=== PATIENT | male | born 1975 | race Caucasian/White ===

== ENCOUNTER 2019-09-22 21:39 | Inpatient (IN) | payer SELFPAY ==
[~2019-09-22] VITALS: Ht 157.5 cm; Wt 73.9 kg
[2019-09-22] MEDS ORDERED: SODIUM CHLORIDE 0.9% 1,000 ML IV ONE (23:09)
[2019-09-22] MEDS ORDERED: ONDANSETRON HCL 4MG/2ML INJ IV STA (23:09)
[2019-09-23] VITALS (7 sets, daily range): BP systolic 123–132; BP diastolic 79–94
[2019-09-23 00:15] LABS: HEMATOCRIT. 52.4 % (42.0-52.0); HEMOGLOBIN. 17.3 g/dL (14.0-18.0); MEAN CORPUSCULAR HEMOGLOBIN 32.6 pg (28.0-32.0); MEAN CORPUSCULAR VOLUME 98.9 fL (80.0-94.0); MEAN PLATELET VOLUME 9.2 fl (7.4-10.4); PLATELET 132 x1000/uL (130-400); RED CELL DISTRIBUTION WIDTH 14.2 % (11.6-14.6)
[2019-09-23 00:21] LABS: INR 1.3
[2019-09-23 00:24] LABS: CHLORIDE 101 mEq/L (98-107)
[2019-09-23 00:30] LABS: ETHANOL BLOOD < 10 mg/dL
[2019-09-23] MEDS ORDERED: ASPIRIN 325MG TABLET PO ONE (01:00)
[2019-09-23] MEDS ORDERED: CEFTRIAXONE 1 G PREMIX 50 ML IV ONE (01:00)
[2019-09-23] MEDS ORDERED: SODIUM CHLORIDE 0.9% 1000ML BAG (SEPSIS BOLUS) IV ONE (01:00)
[2019-09-23 01:19] LABS: CLARITY URINE TURBID (CLEAR); COLOR URINE DARK YELLOW (YELLOW); KETONES URINE NEGATIVE (NEGATIVE); LEUKOCYTE ESTERASE URINE 1+ (NEGATIVE); NITRITE URINE NEGATIVE (NEGATIVE); OCCULT BLOOD URINE 3+ (NEGATIVE); PROTEIN URINE 3+ (NEGATIVE); SPECIFIC GRAVITY URINE 1.019 (1.005-1.030)
[2019-09-23 01:49] LABS: PLATELET ESTIMATE NORMAL
[2019-09-23 01:55] LABS: *BENZODIAZEPINES SCREEN URINE NEGATIVE (NEGATIVE); *COCAINE SCREEN URINE NEGATIVE (NEGATIVE); METHADONE URINE SCREEN NEGATIVE (NEGATIVE); OPIATES URINE SCREEN NEGATIVE (NEGATIVE)
[2019-09-23 01:56] LABS: *AMPHETAMINES SCREEN URINE PRESUMTIVE POSITIVE (NEGATIVE); *BARBITURATES SCREEN URINE NEGATIVE (NEGATIVE); CANNABINOID URINE SCREEN NEGATIVE (NEGATIVE); PHENCYCLIDINE URINE SCREEN NEGATIVE (NEGATIVE)
[2019-09-23] MEDS ORDERED: CALCIUM CHLORIDE 1GM/10ML SYR IV SCH (03:00)
[2019-09-23] MEDS ORDERED: DEXTROSE 50% WATER 50ML SYRINGE IV SCH (03:00)
[2019-09-23] MEDS ORDERED: INSULIN REGULAR (HUMULIN R) 300UNITS/3ML IV SCH (03:00)
[2019-09-23] MEDS ORDERED: SODIUM CHLORIDE 0.9% 1,000 ML IV ONE (03:00)
[2019-09-23] MEDS ORDERED: ONDANSETRON HCL 4MG/2ML INJ IV PRN (04:30)
[2019-09-23] MEDS ORDERED: ACETAMINOPHEN 650MG SUPP PR PRN (04:30)
[2019-09-23] MEDS ORDERED: IPRATROPIUM/ALBUTEROL 0.5-3(2.5)MG/3ML NEB NEB PRN (04:30)
[2019-09-23] MEDS ORDERED: DIPHENHYDRAMINE 50MG/ML VIAL IV PRN (04:30)
[2019-09-23] MEDS: DEXT 5%/0.45% NACL 1000ML 1,000 ML IV SCH ×2 (07:09→16:37)
[2019-09-23] MEDS: FAMOTIDINE 20MG/2ML VIAL IV SCH (08:29)
[2019-09-23 08:40] LABS: CHLORIDE 109 mEq/L (98-107)
[2019-09-23 08:59] LABS: HEMATOCRIT 45.3 % (42.0-52.0); HEMOGLOBIN 15.2 g/dL (14.0-18.0); MEAN CORPUSCULAR VOLUME 98.6 fL (80.0-94.0); PLATELET 113 x1000/uL (130-400); RED CELL DISTRIBUTION WIDTH 14.1 % (11.6-14.6)
[2019-09-23] MEDS ORDERED: DEXTROSE 50% WATER 50ML SYRINGE IV PRN (10:15)
[2019-09-23] MEDS: BLOOD SUGAR DIAGNOSTIC STRIP TEST SCH ×3 (12:34→22:10)
[2019-09-23] MEDS: INSULIN LISPRO 100 UNITS/ML SUBCUT SCH ×3 (12:34→21:00)
[2019-09-23] MEDS ORDERED: SODIUM POLYSTYRENE SULFONATE 15 G/60 ML BOT PO NR (14:00)
[2019-09-23 15:08] LABS: BG BASE EXCESS -9.4 mmol/L (-2.0-2.0); BG CARBOXYHEMOGLOBIN 1.1 % (0.5-1.5); BG DEOXYHEMOGLOBIN 4.1 % (0.0-5.0); BG FRACTION INSPIRED OXYGEN 21; BG HCO3 ACT 17.2 mmol/L (22.0-26.0); BG METHEMOGLOBIN 0.3 % (0.0-1.5); BG OXYGEN SATURATION 95.8 % (92.0-98.5); BG OXYHEMOGLOBIN 94.5 % (94.0-97.0); BG PCO2 39.9 mmHg (35.0-45.0); BG PH 7.252 (7.350-7.450); BG PO2 89.7 mmHg (75.0-100.0); BG SAMPLE SITE RIGHT BRACHIAL; BG TOTAL HEMOGLOBIN 15.2 g/dL (12.0-18.0); BG VENT MODE ROOM AIR
[2019-09-23 18:48] LABS: HEPATITIS B SURFACE ANTIGEN NEGATIVE
[2019-09-23 19:17] LABS: HEPATITIS A AB IGM NEGATIVE (NEGATIVE)
[2019-09-23 19:49] LABS: CREATINE KINASE 69357 IU/L (39-308)
[2019-09-24] VITALS (26 sets, daily range): BP systolic 132–165; BP diastolic 80–101
[2019-09-24] MEDS ORDERED: CEFTRIAXONE 1 G PREMIX 50 ML IV SCH (01:00)
[2019-09-24] MEDS: DEXT 5%/0.45% NACL 1000ML 1,000 ML IV SCH (02:30)
[2019-09-24] MEDS: BLOOD SUGAR DIAGNOSTIC STRIP TEST SCH ×4 (06:53→21:21)
[2019-09-24 07:37] LABS: BASOPHILS % 0.2 % (0.0-2.0); EOSINOPHILS % 0.2 % (0.0-5.0); HEMATOCRIT. 40.3 % (42.0-52.0); HEMOGLOBIN. 13.7 g/dL (14.0-18.0); LYMPHOCYTES % 7.6 % (20.0-50.0); MEAN CORPUSCULAR VOLUME 97.2 fL (80.0-94.0); MEAN PLATELET VOLUME 10.2 fl (7.4-10.4); MONOCYTES % 11.3 % (2.0-8.0); NEUTROPHILS % 80.7 % (40.0-76.0); PLATELET 90 x1000/uL (130-400); RED BLOOD CELL COUNT 4.15 mill/uL (4.7-6.1); RED CELL DISTRIBUTION WIDTH 13.9 % (11.6-14.6)
[2019-09-24] MEDS: INSULIN LISPRO 100 UNITS/ML SUBCUT SCH ×4 (07:45→21:00)
[2019-09-24] MEDS: FAMOTIDINE 20MG/2ML VIAL IV SCH (09:40)
[2019-09-24 11:51] LABS: CREATINE KINASE MB FRACTION 437.9 ng/mL (0.5-3.6)
[2019-09-24] MEDS: SODIUM CHLORIDE 0.9% 1,000 ML IV SCH ×2 (13:45→21:59)
[2019-09-24] MEDS: AMLODIPINE 5MG TABLET PO SCH ×2 (15:00→21:18)
[2019-09-24] MEDS ORDERED: CLONIDINE 0.1MG TABLET PO PRN (15:00)
[2019-09-24] MEDS ORDERED: MORPHINE SULFATE 4 MG/ML CPJ (NOT FOR IM USE) IV PRN (19:45)
[2019-09-24] MEDS: CALCIUM ACETATE 667MG CAPSULE PO SCH (20:02)
[2019-09-25] VITALS (11 sets, daily range): BP systolic 125–153; BP diastolic 62–90
[2019-09-25] MEDS: CEFTRIAXONE 1 G PREMIX 50 ML IV SCH (01:15)
[2019-09-25] MEDS: SODIUM CHLORIDE 0.9% 1,000 ML IV SCH (06:36)
[2019-09-25] MEDS: BLOOD SUGAR DIAGNOSTIC STRIP TEST SCH (06:36)
[2019-09-25] MEDS: INSULIN LISPRO 100 UNITS/ML SUBCUT SCH (08:00)
[2019-09-25 08:03] LABS: BASOPHILS % 0.1 % (0.0-2.0); EOSINOPHILS % 0.2 % (0.0-5.0); HEMATOCRIT. 36.3 % (42.0-52.0); HEMOGLOBIN. 12.5 g/dL (14.0-18.0); MEAN CORPUSCULAR HEMOGLOBIN 33.2 pg (28.0-32.0); MEAN CORPUSCULAR VOLUME 96.1 fL (80.0-94.0); MEAN PLATELET VOLUME 9.9 fl (7.4-10.4); MONOCYTES % 12.6 % (2.0-8.0); NEUTROPHILS % 77.1 % (40.0-76.0); PLATELET 66 x1000/uL (130-400); RED BLOOD CELL COUNT 3.78 mill/uL (4.7-6.1); RED CELL DISTRIBUTION WIDTH 13.5 % (11.6-14.6)
[2019-09-25 08:15] LABS: CHLORIDE 105 mEq/L (98-107)
[2019-09-25 08:26] LABS: PHOSPHORUS 4.8 mg/dL (2.5-4.9)
[2019-09-25 08:32] LABS: CREATINE KINASE MB FRACTION 135.2 ng/mL (0.5-3.6)
[2019-09-25 09:27] LABS: CREATINE KINASE 22980 IU/L (39-308)
[2019-09-25] MEDS: AMLODIPINE 5MG TABLET PO SCH ×2 (10:35→21:45)
[2019-09-25] MEDS: FAMOTIDINE 20MG/2ML VIAL IV SCH (10:35)
[2019-09-25] MEDS: CALCIUM ACETATE 667MG CAPSULE PO SCH (10:35)
[2019-09-25] MEDS: CALCIUM CARBONATE 500MG TABLET CHEW PO SCH (13:41)
[2019-09-26] VITALS (11 sets, daily range): BP systolic 126–150; BP diastolic 66–95
[2019-09-26] MEDS: CEFTRIAXONE 1 G PREMIX 50 ML IV SCH (00:19)
[2019-09-26 07:54] LABS: CHLORIDE 104 mEq/L (98-107)
[2019-09-26 08:01] LABS: PHOSPHORUS 3.8 mg/dL (2.5-4.9)
[2019-09-26 08:15] LABS: BASOPHILS % 0.1 % (0.0-2.0); EOSINOPHILS % 0.7 % (0.0-5.0); HEMATOCRIT. 34.7 % (42.0-52.0); HEMOGLOBIN. 12.1 g/dL (14.0-18.0); MEAN CORPUSCULAR HEMOGLOBIN 33.3 pg (28.0-32.0); MEAN CORPUSCULAR VOLUME 95.5 fL (80.0-94.0); MEAN PLATELET VOLUME 9.5 fl (7.4-10.4); MONOCYTES % 13.4 % (2.0-8.0); NEUTROPHILS % 75.8 % (40.0-76.0); PLATELET 73 x1000/uL (130-400); RED BLOOD CELL COUNT 3.63 mill/uL (4.7-6.1); RED CELL DISTRIBUTION WIDTH 13.4 % (11.6-14.6)
[2019-09-26 08:40] LABS: CREATINE KINASE 12512 IU/L (39-308)
[2019-09-26] MEDS: CALCIUM CARBONATE 500MG TABLET CHEW PO SCH ×3 (08:56→17:30)
[2019-09-26] MEDS: FAMOTIDINE 20MG/2ML VIAL IV SCH (08:57)
[2019-09-26] MEDS: AMLODIPINE 5MG TABLET PO SCH ×2 (14:20→20:28)
[2019-09-26] MEDS ORDERED: POTASSIUM CHLORIDE 20MEQ TABLET SR PO NR (14:38)
[2019-09-27] VITALS (12 sets, daily range): BP systolic 126–159; BP diastolic 52–86
[2019-09-27] MEDS: CEFTRIAXONE 1 G PREMIX 50 ML IV SCH (00:57)
[2019-09-27 06:22] LABS: BASOPHILS % 0.2 % (0.0-2.0); EOSINOPHILS % 1.9 % (0.0-5.0); HEMOGLOBIN. 13.1 g/dL (14.0-18.0); LYMPHOCYTES % 9.4 % (20.0-50.0); MEAN CORPUSCULAR HEMOGLOBIN 33.1 pg (28.0-32.0); MEAN CORPUSCULAR VOLUME 95.5 fL (80.0-94.0); MEAN PLATELET VOLUME 9.5 fl (7.4-10.4); MONOCYTES % 9.3 % (2.0-8.0); NEUTROPHILS % 79.2 % (40.0-76.0); PLATELET 87 x1000/uL (130-400); RED BLOOD CELL COUNT 3.97 mill/uL (4.7-6.1); RED CELL DISTRIBUTION WIDTH 13.3 % (11.6-14.6)
[2019-09-27 06:39] LABS: FOLIC ACID (FOLATE) SERUM 15.3 ng/mL (>5.38)
[2019-09-27] MEDS: FAMOTIDINE 20MG/2ML VIAL IV SCH (08:31)
[2019-09-27] MEDS: AMLODIPINE 5MG TABLET PO SCH ×2 (08:31→22:18)
[2019-09-27] MEDS: CALCIUM CARBONATE 500MG TABLET CHEW PO SCH ×3 (08:31→18:23)
[2019-09-28] VITALS (12 sets, daily range): BP systolic 106–148; BP diastolic 49–84
[2019-09-28] MEDS: CEFTRIAXONE 1 G PREMIX 50 ML IV SCH (00:40)
[2019-09-28 07:15] LABS: BASOPHILS % 0.3 % (0.0-2.0); EOSINOPHILS % 2.5 % (0.0-5.0); HEMATOCRIT. 39.9 % (42.0-52.0); HEMOGLOBIN. 13.6 g/dL (14.0-18.0); LYMPHOCYTES % 8.7 % (20.0-50.0); MEAN CORPUSCULAR HEMOGLOBIN 32.6 pg (28.0-32.0); MEAN CORPUSCULAR VOLUME 95.5 fL (80.0-94.0); MEAN PLATELET VOLUME 9.9 fl (7.4-10.4); MONOCYTES % 8.6 % (2.0-8.0); NEUTROPHILS % 79.9 % (40.0-76.0); PLATELET 99 x1000/uL (130-400); RED BLOOD CELL COUNT 4.18 mill/uL (4.7-6.1); RED CELL DISTRIBUTION WIDTH 13.4 % (11.6-14.6)
[2019-09-28 07:30] LABS: CHLORIDE 105 mEq/L (98-107)
[2019-09-28 07:58] LABS: PHOSPHORUS 4.3 mg/dL (2.5-4.9)
[2019-09-28 08:22] LABS: CREATINE KINASE 4349 IU/L (39-308)
[2019-09-28] MEDS: AMLODIPINE 5MG TABLET PO SCH ×2 (09:00→20:10)
[2019-09-28] MEDS: CALCIUM CARBONATE 500MG TABLET CHEW PO SCH ×3 (09:38→17:37)
[2019-09-28] MEDS: FAMOTIDINE 20MG/2ML VIAL IV SCH (09:38)
[2019-09-29] VITALS: BP 119/72
[2019-09-29] MEDS: CEFTRIAXONE 1 G PREMIX 50 ML IV SCH (00:23)
[2019-09-29 04:00] VITALS: BP 129/84
[2019-09-29 06:36] LABS: CHLORIDE 106 mEq/L (98-107)
[2019-09-29 06:43] LABS: PHOSPHORUS 4.5 mg/dL (2.5-4.9)
[2019-09-29 07:24] LABS: BASOPHILS % 0.2 % (0.0-2.0); EOSINOPHILS % 2.8 % (0.0-5.0); HEMATOCRIT. 36.3 % (42.0-52.0); HEMOGLOBIN. 12.7 g/dL (14.0-18.0); LYMPHOCYTES % 10.4 % (20.0-50.0); MEAN CORPUSCULAR HEMOGLOBIN 33.3 pg (28.0-32.0); MEAN CORPUSCULAR VOLUME 94.9 fL (80.0-94.0); MEAN PLATELET VOLUME 9.7 fl (7.4-10.4); NEUTROPHILS % 75.6 % (40.0-76.0); PLATELET 99 x1000/uL (130-400); RED BLOOD CELL COUNT 3.82 mill/uL (4.7-6.1); RED CELL DISTRIBUTION WIDTH 13.3 % (11.6-14.6)
[2019-09-29 07:42] VITALS: BP 146/71
[2019-09-29] MEDS: CALCIUM CARBONATE 500MG TABLET CHEW PO SCH ×3 (08:17→17:49)
[2019-09-29] MEDS: FAMOTIDINE 20MG TABLET PO SCH (08:54)
[2019-09-29] MEDS: AMLODIPINE 5MG TABLET PO SCH ×2 (09:00→21:00)
[2019-09-29 12:00] VITALS: BP 122/76
[2019-09-29] MEDS: ASPIRIN 81MG EC TABLET PO SCH (15:27)
[2019-09-29 16:00] VITALS: BP 108/61
[2019-09-29 20:00] VITALS: BP 128/76
[2019-09-30] VITALS: BP 121/69
[2019-09-30] MEDS: CEFTRIAXONE 1 G PREMIX 50 ML IV SCH (00:22)
[2019-09-30 04:00] VITALS: BP 141/84
[2019-09-30 06:50] LABS: HEMATOCRIT. 35.2 % (42.0-52.0); HEMOGLOBIN. 12.1 g/dL (14.0-18.0); MEAN CORPUSCULAR HEMOGLOBIN 32.9 pg (28.0-32.0); MEAN CORPUSCULAR VOLUME 96.1 fL (80.0-94.0); MEAN PLATELET VOLUME 10.2 fl (7.4-10.4); PLATELET 103 x1000/uL (130-400); RED BLOOD CELL COUNT 3.67 mill/uL (4.7-6.1); RED CELL DISTRIBUTION WIDTH 13.6 % (11.6-14.6)
[2019-09-30 07:09] LABS: CHLORIDE 102 mEq/L (98-107)
[2019-09-30 07:22] LABS: PHOSPHORUS 5.4 mg/dL (2.5-4.9)
[2019-09-30 07:51] VITALS: BP 102/61
[2019-09-30 08:14] LABS: PLATELET ESTIMATE DECREASED
[2019-09-30] MEDS: FAMOTIDINE 20MG TABLET PO SCH (08:27)
[2019-09-30] MEDS: ASPIRIN 81MG EC TABLET PO SCH (08:27)
[2019-09-30] MEDS: CALCIUM CARBONATE 500MG TABLET CHEW PO SCH ×3 (08:27→17:54)
[2019-09-30] MEDS: AMLODIPINE 5MG TABLET PO SCH ×2 (08:29→20:19)
[2019-09-30 12:00] VITALS: BP 132/74
[2019-09-30 16:00] VITALS: BP 104/62
[2019-09-30 20:00] VITALS: BP 108/65
[2019-10-01] VITALS: BP 96/75
[2019-10-01] MEDS: CEFTRIAXONE 1 G PREMIX 50 ML IV SCH (00:10)
[2019-10-01 04:00] VITALS: BP 110/69
[2019-10-01] MEDS: CALCIUM CARBONATE 500MG TABLET CHEW PO SCH ×3 (06:07→20:47)
[2019-10-01 07:18] LABS: BASOPHILS % 0.4 % (0.0-2.0); EOSINOPHILS % 2.3 % (0.0-5.0); HEMATOCRIT. 31.5 % (42.0-52.0); HEMOGLOBIN. 10.9 g/dL (14.0-18.0); LYMPHOCYTES % 12.4 % (20.0-50.0); MEAN CORPUSCULAR VOLUME 95.2 fL (80.0-94.0); MEAN PLATELET VOLUME 9.7 fl (7.4-10.4); MONOCYTES % 9.4 % (2.0-8.0); NEUTROPHILS % 75.5 % (40.0-76.0); PLATELET 123 x1000/uL (130-400); RED BLOOD CELL COUNT 3.31 mill/uL (4.7-6.1); RED CELL DISTRIBUTION WIDTH 13.3 % (11.6-14.6)
[2019-10-01 07:32] LABS: PHOSPHORUS 4.7 mg/dL (2.5-4.9)
[2019-10-01 08:00] VITALS: BP 109/70
[2019-10-01] MEDS: AMLODIPINE 5MG TABLET PO SCH ×2 (09:00→20:48)
[2019-10-01] MEDS: FAMOTIDINE 20MG TABLET PO SCH (09:03)
[2019-10-01] MEDS: FOLIC ACID/VITAMIN B COMP W-C TABLET PO SCH (09:03)
[2019-10-01] MEDS: ASPIRIN 81MG EC TABLET PO SCH (09:03)
[2019-10-01 20:00] VITALS: BP 113/74
[2019-10-01] MEDS ORDERED: TRAMADOL 50MG TABLET PO PRN (23:00)
[2019-10-02] VITALS: BP 109/65
[2019-10-02] MEDS: ZOLPIDEM TARTRATE 5MG TABLET PO PRN ×2 (01:10→23:21)
[2019-10-02 04:00] VITALS: BP 104/66
[2019-10-02 06:44] LABS: BASOPHILS % 0.4 % (0.0-2.0); EOSINOPHILS % 2.1 % (0.0-5.0); HEMATOCRIT. 29.1 % (42.0-52.0); HEMOGLOBIN. 10.2 g/dL (14.0-18.0); LYMPHOCYTES % 10.8 % (20.0-50.0); MEAN CORPUSCULAR HEMOGLOBIN 33.5 pg (28.0-32.0); MEAN CORPUSCULAR VOLUME 95.5 fL (80.0-94.0); MEAN PLATELET VOLUME 10.1 fl (7.4-10.4); MONOCYTES % 8.1 % (2.0-8.0); NEUTROPHILS % 78.6 % (40.0-76.0); PLATELET 142 x1000/uL (130-400); RED BLOOD CELL COUNT 3.05 mill/uL (4.7-6.1); RED CELL DISTRIBUTION WIDTH 13.5 % (11.6-14.6)
[2019-10-02 06:54] LABS: CHLORIDE 105 mEq/L (98-107)
[2019-10-02 07:08] LABS: PHOSPHORUS 5.6 mg/dL (2.5-4.9)
[2019-10-02 07:11] LABS: CREATINE KINASE 714 IU/L (39-308)
[2019-10-02 08:00] VITALS: BP 133/80
[2019-10-02] MEDS: AMLODIPINE 5MG TABLET PO SCH ×2 (09:00→21:08)
[2019-10-02] MEDS: ASPIRIN 81MG EC TABLET PO SCH (10:41)
[2019-10-02] MEDS: FAMOTIDINE 20MG TABLET PO SCH (10:41)
[2019-10-02] MEDS: CALCIUM CARBONATE 500MG TABLET CHEW PO SCH ×3 (10:41→16:38)
[2019-10-02] MEDS: FOLIC ACID/VITAMIN B COMP W-C TABLET PO SCH (10:41)
[2019-10-02 20:00] VITALS: BP 112/79
[2019-10-02 21:16] LABS: CREATINE KINASE 549 IU/L (39-308)
[2019-10-03] VITALS: BP 114/60
[2019-10-03 04:00] VITALS: BP 98/59
[2019-10-03 06:14] LABS: HEMATOCRIT. 27.9 % (42.0-52.0); HEMOGLOBIN. 9.7 g/dL (14.0-18.0); MEAN CORPUSCULAR HEMOGLOBIN 33.8 pg (28.0-32.0); MEAN CORPUSCULAR VOLUME 96.7 fL (80.0-94.0); MEAN PLATELET VOLUME 9.8 fl (7.4-10.4); PLATELET 151 x1000/uL (130-400); RED BLOOD CELL COUNT 2.88 mill/uL (4.7-6.1); RED CELL DISTRIBUTION WIDTH 13.6 % (11.6-14.6)
[2019-10-03 06:42] LABS: CHLORIDE 108 mEq/L (98-107)
[2019-10-03 06:48] LABS: PHOSPHORUS 5.1 mg/dL (2.5-4.9)
[2019-10-03 06:51] LABS: CREATINE KINASE 440 IU/L (39-308)
[2019-10-03 08:00] VITALS: BP 115/63
[2019-10-03] MEDS: ASPIRIN 81MG EC TABLET PO SCH (08:53)
[2019-10-03] MEDS: AMLODIPINE 5MG TABLET PO SCH ×2 (08:54→21:07)
[2019-10-03] MEDS: CALCIUM CARBONATE 500MG TABLET CHEW PO SCH ×3 (08:54→17:04)
[2019-10-03] MEDS: FOLIC ACID/VITAMIN B COMP W-C TABLET PO SCH (08:54)
[2019-10-03] MEDS: FAMOTIDINE 20MG TABLET PO SCH (08:54)
[2019-10-03 12:00] VITALS: BP 125/80
[2019-10-03 13:49] LABS: PLATELET ESTIMATE NORMAL
[2019-10-03 16:00] VITALS: BP 106/68
[2019-10-03 20:00] VITALS: BP 120/75
[2019-10-04] VITALS: BP 118/69
[2019-10-04 04:00] VITALS: BP 109/59
[2019-10-04 06:53] LABS: BASOPHILS % 0.4 % (0.0-2.0); EOSINOPHILS % 1.9 % (0.0-5.0); HEMATOCRIT. 27.2 % (42.0-52.0); HEMOGLOBIN. 9.7 g/dL (14.0-18.0); LYMPHOCYTES % 11.9 % (20.0-50.0); MEAN CORPUSCULAR VOLUME 95.4 fL (80.0-94.0); MEAN PLATELET VOLUME 9.7 fl (7.4-10.4); MONOCYTES % 7.9 % (2.0-8.0); NEUTROPHILS % 77.9 % (40.0-76.0); PLATELET 162 x1000/uL (130-400); RED BLOOD CELL COUNT 2.85 mill/uL (4.7-6.1); RED CELL DISTRIBUTION WIDTH 13.2 % (11.6-14.6)
[2019-10-04 07:09] LABS: CHLORIDE 106 mEq/L (98-107)
[2019-10-04 07:26] LABS: PHOSPHORUS 5.7 mg/dL (2.5-4.9)
[2019-10-04 07:27] LABS: CREATINE KINASE 416 IU/L (39-308)
[2019-10-04 08:00] VITALS: BP 110/72
[2019-10-04] MEDS: AMLODIPINE 5MG TABLET PO SCH ×2 (08:53→21:00)
[2019-10-04] MEDS: FOLIC ACID/VITAMIN B COMP W-C TABLET PO SCH (09:09)
[2019-10-04] MEDS: CALCIUM CARBONATE 500MG TABLET CHEW PO SCH ×3 (09:09→17:40)
[2019-10-04] MEDS: ASPIRIN 81MG EC TABLET PO SCH (09:09)
[2019-10-04] MEDS: FAMOTIDINE 20MG TABLET PO SCH (09:09)
[2019-10-04 12:27] VITALS: BP 115/74
[2019-10-04 16:00] VITALS: BP 112/67
[2019-10-04] MEDS: DOCUSATE SODIUM 100MG CAPSULE PO SCH (17:00)
[2019-10-04 20:00] VITALS: BP_SYST 120; BP_SYST 137; BP_DIAS 65; BP_DIAS 74
[2019-10-05] VITALS: BP_SYST 106; BP_SYST 123; BP_DIAS 73; BP_DIAS 89
[2019-10-05 04:00] VITALS: BP 110/61
[2019-10-05 08:00] VITALS: BP 110/68
[2019-10-05] MEDS: AMLODIPINE 5MG TABLET PO SCH ×2 (08:44→20:37)
[2019-10-05] MEDS: CALCIUM CARBONATE 500MG TABLET CHEW PO SCH ×3 (10:10→17:04)
[2019-10-05] MEDS: DOCUSATE SODIUM 100MG CAPSULE PO SCH ×2 (10:10→17:04)
[2019-10-05] MEDS: ASPIRIN 81MG EC TABLET PO SCH (10:10)
[2019-10-05] MEDS: FOLIC ACID/VITAMIN B COMP W-C TABLET PO SCH (10:10)
[2019-10-05] MEDS: FAMOTIDINE 20MG TABLET PO SCH (10:12)
[2019-10-05 12:00] VITALS: BP 96/55
[2019-10-05 16:00] VITALS: BP 118/78
[2019-10-05 20:00] VITALS: BP 100/58
[2019-10-06] VITALS (7 sets, daily range): BP systolic 107–126; BP diastolic 64–83
[2019-10-06 07:15] LABS: BASOPHILS % 0.5 % (0.0-2.0); EOSINOPHILS % 2.8 % (0.0-5.0); HEMATOCRIT. 26.6 % (42.0-52.0); HEMOGLOBIN. 9.3 g/dL (14.0-18.0); MEAN CORPUSCULAR HEMOGLOBIN 33.5 pg (28.0-32.0); MEAN CORPUSCULAR VOLUME 96.3 fL (80.0-94.0); MEAN PLATELET VOLUME 9.9 fl (7.4-10.4); MONOCYTES % 9.3 % (2.0-8.0); NEUTROPHILS % 71.4 % (40.0-76.0); PLATELET 195 x1000/uL (130-400); RED BLOOD CELL COUNT 2.76 mill/uL (4.7-6.1); RED CELL DISTRIBUTION WIDTH 13.3 % (11.6-14.6)
[2019-10-06 07:48] LABS: CHLORIDE 109 mEq/L (98-107)
[2019-10-06 07:58] LABS: CREATINE KINASE 221 IU/L (39-308); PHOSPHORUS 5.6 mg/dL (2.5-4.9)
[2019-10-06] MEDS: ASPIRIN 81MG EC TABLET PO SCH (09:54)
[2019-10-06] MEDS: FAMOTIDINE 20MG TABLET PO SCH (09:54)
[2019-10-06] MEDS: FOLIC ACID/VITAMIN B COMP W-C TABLET PO SCH (09:54)
[2019-10-06] MEDS: DOCUSATE SODIUM 100MG CAPSULE PO SCH ×2 (09:55→18:08)
[2019-10-06] MEDS: AMLODIPINE 5MG TABLET PO SCH ×2 (09:55→21:37)
[2019-10-06] MEDS: CALCIUM CARBONATE 500MG TABLET CHEW PO SCH ×3 (09:58→18:08)
[2019-10-07] VITALS: BP 112/76
[2019-10-07 04:09] VITALS: BP 120/72
[2019-10-07 06:33] LABS: CHLORIDE 108 mEq/L (98-107)
[2019-10-07 06:44] LABS: BASOPHILS % 0.7 % (0.0-2.0); EOSINOPHILS % 2.6 % (0.0-5.0); HEMATOCRIT. 27.2 % (42.0-52.0); HEMOGLOBIN. 9.5 g/dL (14.0-18.0); LYMPHOCYTES % 16.8 % (20.0-50.0); MEAN CORPUSCULAR HEMOGLOBIN 33.4 pg (28.0-32.0); MEAN CORPUSCULAR VOLUME 95.6 fL (80.0-94.0); MONOCYTES % 9.3 % (2.0-8.0); NEUTROPHILS % 70.6 % (40.0-76.0); PLATELET 204 x1000/uL (130-400); RED BLOOD CELL COUNT 2.84 mill/uL (4.7-6.1); RED CELL DISTRIBUTION WIDTH 13.3 % (11.6-14.6)
[2019-10-07 07:01] LABS: PHOSPHORUS 5.5 mg/dL (2.5-4.9)
[2019-10-07 07:04] LABS: CREATINE KINASE 162 IU/L (39-308)
[2019-10-07 08:00] VITALS: BP 123/73
[2019-10-07] MEDS: AMLODIPINE 5MG TABLET PO SCH (09:17)
[2019-10-07] MEDS: ASPIRIN 81MG EC TABLET PO SCH (09:17)
[2019-10-07] MEDS: CALCIUM CARBONATE 500MG TABLET CHEW PO SCH ×2 (09:17→12:45)
[2019-10-07] MEDS: DOCUSATE SODIUM 100MG CAPSULE PO SCH (09:17)
[2019-10-07] MEDS: FOLIC ACID/VITAMIN B COMP W-C TABLET PO SCH (09:17)
[2019-10-07 12:00] VITALS: BP 109/67
[2019-10-07] MEDS: FAMOTIDINE 20MG TABLET PO SCH (12:44)
[2019-10-07 16:00] VITALS: BP 109/67
[2019-10-07 16:44] VITALS: BP 109/67
== END 2019-10-07 19:20 | disposition home or self-care (01) | DRG 720 ==
LOC: ER 21:39 → 5EST 09-23 02:50 → ENRESERV 09-23 05:07 → 8WST 09-30 14:50
PROVIDERS: ADMIT Internal Medicine; ATTEND Internal Medicine
PROC: 02HV33Z Insertion of Infusion Device into Superior Vena Cava, Percutaneous Approach (ICD-10-PCS; principal; 2019-09-24)
PROC: B548ZZA Ultrasonography of Superior Vena Cava, Guidance (ICD-10-PCS; 2019-09-24)
PROC: B5181ZA Fluoroscopy of Superior Vena Cava using Low Osmolar Contrast, Guidance (ICD-10-PCS; 2019-09-24)
PROC: 5A1D70Z Performance of Urinary Filtration, Intermittent, Less than 6 Hours Per Day (ICD-10-PCS; 2019-09-24)
PROC: 5A1D70Z Performance of Urinary Filtration, Intermittent, Less than 6 Hours Per Day (ICD-10-PCS; 2019-09-25)
PROC: 5A1D70Z Performance of Urinary Filtration, Intermittent, Less than 6 Hours Per Day (ICD-10-PCS; 2019-09-27)
PROC: 5A1D70Z Performance of Urinary Filtration, Intermittent, Less than 6 Hours Per Day (ICD-10-PCS; 2019-09-30)
PROC: 5A1D70Z Performance of Urinary Filtration, Intermittent, Less than 6 Hours Per Day (ICD-10-PCS; 2019-10-01)
PROC: 5A1D70Z Performance of Urinary Filtration, Intermittent, Less than 6 Hours Per Day (ICD-10-PCS; 2019-10-03)
DX: A41.9 Sepsis, unspecified organism (principal); I63.9 Cerebral infarction, unspecified; N17.0 Acute kidney failure with tubular necrosis; I21.4 Non-ST elevation (NSTEMI) myocardial infarction; E43 Unspecified severe protein-calorie malnutrition; D69.6 Thrombocytopenia, unspecified; G93.40 Encephalopathy, unspecified; E11.22 Type 2 diabetes mellitus with diabetic chronic kidney disease; T43.621A Poisoning by amphetamines, accidental (unintentional), initial encounter; E11.52 Type 2 diabetes mellitus with diabetic peripheral angiopathy with gangrene; E83.39 Other disorders of phosphorus metabolism; B19.9 Unspecified viral hepatitis without hepatic coma; D53.9 Nutritional anemia, unspecified; E83.51 Hypocalcemia; E86.0 Dehydration; E87.1 Hypo-osmolality and hyponatremia; E87.5 Hyperkalemia; E87.6 Hypokalemia; F10.10 Alcohol abuse, uncomplicated; F15.129 Other stimulant abuse with intoxication, unspecified; I07.1 Rheumatic tricuspid insufficiency; I12.0 Hypertensive chronic kidney disease with stage 5 chronic kidney disease or end stage renal disease; I27.20 Pulmonary hypertension, unspecified; I48.20 Chronic atrial fibrillation, unspecified; K40.20 Bilateral inguinal hernia, without obstruction or gangrene, not specified as recurrent; K76.0 Fatty (change of) liver, not elsewhere classified; M43.16 Spondylolisthesis, lumbar region; M48.061 Spinal stenosis, lumbar region without neurogenic claudication; M62.82 Rhabdomyolysis; N18.6 End stage renal disease; N39.0 Urinary tract infection, site not specified; M54.9 Dorsalgia, unspecified; R20.2 Paresthesia of skin; G81.91 Hemiplegia, unspecified affecting right dominant side; S91.311A Laceration without foreign body, right foot, initial encounter; W19.XXXA Unspecified fall, initial encounter; Y93.89 Activity, other specified; Z68.28 Body mass index [BMI] 28.0-28.9, adult; Z82.49 Family history of ischemic heart disease and other diseases of the circulatory system; Y92.89 Other specified places as the place of occurrence of the external cause; Y99.8 Other external cause status
CPT/HCPCS: 36415; 36600; 70544; 70553; 71045; 72128; 72131; 74176; 76770; 77001; 80048; 80076; 80305; 80307; 80320; 80329; 81003; 82140; 82248; 82330; 82375; 82550; 82553; 82607; 82746; 82805; 82962; 83605; 83735; 84100; 84484; 85027; 86705; 86709; 86803; 86850; 86900; 87340; 93005; 93306; 93923; 93970; 96361; 96365; 96375; 97116; 97162; 97530; 99291; C1752; J0696; J1815; J2270; J2405; J3490; J7030; J7040; A4315; G0480